=== PATIENT | male | born 1995 | race Two or more races ===

== ENCOUNTER 2017-06-11 20:15 | Emergency (ER) | payer SELFPAY ==
[~2017-06-11] VITALS: Ht 175.3 cm; Wt 119.3 kg
[2017-06-11] MEDS ORDERED: ACETAMINOPHEN 500 MG TAB PO ONE ×2 (20:30→20:45)
[2017-06-12 00:18] VITALS: BP 143/82
[2017-06-12] MEDS ORDERED: cefTRIAXone SOD 1,000 MG VL IM ONE (00:45)
[2017-06-12] MEDS ORDERED: IBUPROFEN 600 MG TAB PO ONE (00:45)
[2017-06-12] MEDS ORDERED: methylPREDNISolone SOD SUCC 125 MG/2 ML VL IM ONE (00:45)
[2017-06-12] MEDS ORDERED: ACETAMINOPHEN 500 MG TAB PO ONE (00:57)
== END 2017-06-12 01:27 | disposition home or self-care (01) ==
LOC: ER 20:15
DX: J20.9 Acute bronchitis, unspecified (principal); J35.1 Hypertrophy of tonsils; R59.1 Generalized enlarged lymph nodes
CPT/HCPCS: 96372; 99284; J0696; J2930